=== PATIENT | male | born 1995 | race Caucasian/White ===

== ENCOUNTER 2017-11-11 13:21 | Inpatient (IN) | payer MEDICAID, OTHER ==
[~2017-11-11] VITALS: Ht 188 cm; Wt 126.4 kg
[2017-11-11] MEDS ORDERED: LABETALOL 5MG/ML, 20ML ONE (13:53)
[2017-11-11] MEDS ORDERED: SODIUM CHLORIDE FLUSH 10ML SYR IVF ONE (14:00)
[2017-11-11] MEDS: LABETALOL 5MG/ML, 20ML IVPush PRN ×2 (14:03→14:44)
[2017-11-11 14:23] LABS: BASOPHILS # (AUTO) 0.07 x10^3/uL (0-0.1); BASOPHILS % (AUTO) 1 % (0-1); EOSINOPHILS # (AUTO) 0.11 x10^3/uL (0-0.4); EOSINOPHILS % (AUTO) 1 % (1-7); LYMPHOCYTES # (AUTO) 0.95 x10^3/uL (1-3.4); LYMPHOCYTES % (AUTO) 8 % (22-44); MD NO; MEAN CORPUSCULAR HEMOGLOBIN 30.3 pg (27.5-34.5); MEAN CORPUSCULAR HGB CONC 34.9 g/dL (33.2-36.2); MEAN CORPUSCULAR VOLUME 86.8 fL (81-97); MEAN PLATELET VOLUME 10.3 fL (7.4-10.4); MONOCYTES # (AUTO) 0.41 x10^3/uL (0.2-0.8); MONOCYTES % (AUTO) 4 % (2-9); NEUTROPHILS # (AUTO) 9.95 x10^3/uL (1.8-6.8); NEUTROPHILS % (AUTO) 87 % (42-75); PLATELET COUNT 159 x10^3/uL (130-400); RED BLOOD COUNT 5.13 x10^6/uL (4.38-5.82); RED CELL DISTRIBUTION WIDTH 14.6 % (9.4-14.8)
[2017-11-11 14:25] LABS: ALANINE AMINOTRANSFERASE 47 U/L (12-78); ALBUMIN 3.6 g/dL (3.4-5.0); ANION GAP 13 mmol/L (5-15); CALCIUM 8.6 mg/dL (8.5-10.1); CHLORIDE 102 mmol/L (98-107); CREATININE 8.96 mg/dL (0.7-1.3)
[2017-11-11 14:29] LABS: ALKALINE PHOSPHATASE 68 U/L (45-117); TOTAL PROTEIN 7.4 g/dL (6.4-8.2); TROPONIN I 0.105 ng/mL (0.000-0.045)
[2017-11-11] MEDS: HEPARIN 5,000 UNITS/ML, 1ML SQ SCH (16:00)
[2017-11-11] MEDS ORDERED: ENALAPRILAT 1.25 MG/ML, 2ML IVPush PRN (16:00)
[2017-11-11] MEDS ORDERED: POLYETHYLENE GLYCOL 17 GM PACKET PO PRN (16:00)
[2017-11-11] MEDS ORDERED: SODIUM CHLORIDE 0.45% 1,000 ML IV SCH (16:30)
[2017-11-11] MEDS ORDERED: SODIUM CHLORIDE 0.9% 1,000 ML IV SCH (17:00)
[2017-11-11] MEDS: LABETALOL 100 MG TABLET PO SCH (18:06)
[2017-11-11 18:23] LABS: TROPONIN I 0.116 ng/mL (0.000-0.045)
[2017-11-11 18:50] LABS: MICROSCOPIC INDICATED
[2017-11-11 19:03] LABS: AMPHETAMINE SCREEN, URINE Negative (Negative); BARBITURATE SCREEN, URINE Negative (Negative); BENZODIAZEPINE SCREEN, URINE Negative (Negative); CANNABINOID SCREEN, URINE Negative (Negative); COCAINE SCREEN, URINE Negative (Negative); METHADONE SCREEN, URINE Negative (Negative); OPIATE SCREEN, URINE Negative (Negative)
[2017-11-11 19:13] LABS: CULTURE INDICATED? NO
[2017-11-11 19:44] LABS: CHLORIDE,URINE RANDOM 43 mmol/L; POTASSIUM,URINE RANDOM 35 mmol/L; SODIUM,URINE RANDOM 40 mmol/L
[2017-11-12 04:21] LABS: BASOPHILS # (AUTO) 0.03 x10^3/uL (0-0.1); BASOPHILS % (AUTO) 0 % (0-1); EOSINOPHILS % (AUTO) 2 % (1-7); LYMPHOCYTES # (AUTO) 1.99 x10^3/uL (1-3.4); LYMPHOCYTES % (AUTO) 14 % (22-44); MD NO; MEAN CORPUSCULAR HEMOGLOBIN 30.4 pg (27.5-34.5); MEAN CORPUSCULAR HGB CONC 34.8 g/dL (33.2-36.2); MEAN CORPUSCULAR VOLUME 87.3 fL (81-97); MEAN PLATELET VOLUME 9.9 fL (7.4-10.4); MONOCYTES # (AUTO) 0.63 x10^3/uL (0.2-0.8); MONOCYTES % (AUTO) 5 % (2-9); NEUTROPHILS # (AUTO) 10.87 x10^3/uL (1.8-6.8); NEUTROPHILS % (AUTO) 79 % (42-75); PLATELET COUNT 158 x10^3/uL (130-400); RED BLOOD COUNT 4.93 x10^6/uL (4.38-5.82); RED CELL DISTRIBUTION WIDTH 13.4 % (9.4-14.8)
[2017-11-12 04:35] LABS: ANION GAP 11 mmol/L (5-15); CALCIUM 8.1 mg/dL (8.5-10.1); CHLORIDE 100 mmol/L (98-107)
[2017-11-12 04:43] LABS: ALANINE AMINOTRANSFERASE 40 U/L (12-78); ALBUMIN 3.5 g/dL (3.4-5.0); ALKALINE PHOSPHATASE 62 U/L (45-117); BILIRUBIN,TOTAL 0.7 mg/dL (0.2-1.0); CHOL/HDL RATIO 2.8; CHOLESTEROL, TOTAL 122 mg/dL (140-239); CREATININE 9.01 mg/dL (0.7-1.3); HDL CHOL % 35 % (26-37); HDL CHOLESTEROL (DIRECT) 43 mg/dL (40-60); LDL CHOLESTEROL,CALCULATED 53 mg/dL (54-169); LDL/HDL RATIO 1.2 (0.5-3.0); TOTAL PROTEIN 7.1 g/dL (6.4-8.2); TRIGLYCERIDES 131 mg/dL (50-200); VLDL CHOLESTEROL 26 mg/dL (0-25)
[2017-11-12] MEDS: HEPARIN 5,000 UNITS/ML, 1ML SQ SCH ×3 (08:00→16:00)
[2017-11-12] MEDS: AMLODIPINE 5 MG TABLET PO SCH ×2 (11:39→20:57)
[2017-11-12] MEDS: LABETALOL 100 MG TABLET PO SCH ×2 (11:39→18:37)
[2017-11-12] MEDS ORDERED: FUROSEMIDE 100 MG/10 ML IV ONE (13:30)
[2017-11-13] MEDS: ONDANSETRON ODT 4 MG PO PRN ×2 (04:18→08:22)
[2017-11-13 04:33] LABS: ALBUMIN 3.2 g/dL (3.4-5.0); ANION GAP 12 mmol/L (5-15); CALCIUM 8.1 mg/dL (8.5-10.1); CHLORIDE 98 mmol/L (98-107)
[2017-11-13 04:36] LABS: CREATININE 9.18 mg/dL (0.7-1.3)
[2017-11-13 04:37] LABS: ALANINE AMINOTRANSFERASE 31 U/L (12-78); ALKALINE PHOSPHATASE 58 U/L (45-117); BILIRUBIN,TOTAL 0.6 mg/dL (0.2-1.0); TOTAL PROTEIN 6.7 g/dL (6.4-8.2)
[2017-11-13 04:49] LABS: BASOPHILS # (AUTO) 0.09 x10^3/uL (0-0.1); BASOPHILS % (AUTO) 1 % (0-1); EOSINOPHILS # (AUTO) 0.21 x10^3/uL (0-0.4); EOSINOPHILS % (AUTO) 1 % (1-7); LYMPHOCYTES # (AUTO) 1.89 x10^3/uL (1-3.4); LYMPHOCYTES % (AUTO) 13 % (22-44); MD NO; MEAN CORPUSCULAR HEMOGLOBIN 30.2 pg (27.5-34.5); MEAN CORPUSCULAR HGB CONC 34.8 g/dL (33.2-36.2); MEAN CORPUSCULAR VOLUME 86.9 fL (81-97); MEAN PLATELET VOLUME 9.9 fL (7.4-10.4); MONOCYTES # (AUTO) 0.62 x10^3/uL (0.2-0.8); MONOCYTES % (AUTO) 4 % (2-9); NEUTROPHILS # (AUTO) 12.03 x10^3/uL (1.8-6.8); NEUTROPHILS % (AUTO) 81 % (42-75); PLATELET COUNT 204 x10^3/uL (130-400); RED BLOOD COUNT 4.95 x10^6/uL (4.38-5.82); RED CELL DISTRIBUTION WIDTH 14.4 % (9.4-14.8)
[2017-11-13] MEDS: LABETALOL 100 MG TABLET PO SCH ×3 (09:06→21:57)
[2017-11-13] MEDS: AMLODIPINE 5 MG TABLET PO SCH ×2 (09:06→21:57)
[2017-11-13] MEDS: HEPARIN 5,000 UNITS/ML, 1ML SQ SCH ×3 (09:07→17:08)
[2017-11-14 04:51] LABS: INTERNATIONAL NORMALIZED RATIO 0.94 (0.93-1.1); PROTHROMBIN TIME 9.8 Seconds (9.6-11.5)
[2017-11-14 04:53] LABS: MEAN CORPUSCULAR HGB CONC 34.4 g/dL (33.2-36.2); MEAN CORPUSCULAR VOLUME 87.3 fL (81-97); MEAN PLATELET VOLUME 9.7 fL (7.4-10.4); PLATELET COUNT 202 x10^3/uL (130-400); RED BLOOD COUNT 4.64 x10^6/uL (4.38-5.82); RED CELL DISTRIBUTION WIDTH 14.1 % (9.4-14.8)
[2017-11-14 04:55] LABS: ALANINE AMINOTRANSFERASE 26 U/L (12-78); ALBUMIN 3.2 g/dL (3.4-5.0); ANION GAP 9 mmol/L (5-15); CALCIUM 8.6 mg/dL (8.5-10.1); CHLORIDE 100 mmol/L (98-107)
[2017-11-14 04:57] LABS: ALKALINE PHOSPHATASE 56 U/L (45-117); BILIRUBIN,TOTAL 0.4 mg/dL (0.2-1.0); CREATININE 9.59 mg/dL (0.7-1.3); TOTAL PROTEIN 6.9 g/dL (6.4-8.2)
[2017-11-14 05:27] LABS: BASOPHILS # (AUTO) 0.05 x10^3/uL (0-0.1); BASOPHILS % (AUTO) 0 % (0-1); EOSINOPHILS # (AUTO) 0.53 x10^3/uL (0-0.4); EOSINOPHILS % (AUTO) 5 % (1-7); LYMPHOCYTES # (AUTO) 2.25 x10^3/uL (1-3.4); LYMPHOCYTES % (AUTO) 19 % (22-44); MD SCAN; MONOCYTES # (AUTO) 0.65 x10^3/uL (0.2-0.8); MONOCYTES % (AUTO) 6 % (2-9); NEUTROPHILS % (AUTO) 71 % (42-75)
[2017-11-14] MEDS: HEPARIN 5,000 UNITS/ML, 1ML SQ SCH ×3 (08:14→16:19)
[2017-11-14] MEDS: AMLODIPINE 5 MG TABLET PO SCH ×2 (08:14→21:50)
[2017-11-14] MEDS: LABETALOL 100 MG TABLET PO SCH ×3 (08:14→21:51)
[2017-11-14] MEDS ORDERED: LIDOCAINE-MPF 2%, 2ML ONE ×2 (12:35→12:39)
[2017-11-14] MEDS ORDERED: MIDAZOLAM 1 MG/ML, 5ML ONE ×2 (12:37→12:38)
[2017-11-14] MEDS ORDERED: FENTANYL PF 100 MCG/2ML ONE ×2 (12:37)
[2017-11-14] MEDS ORDERED: FLUMAZENIL 0.1 MG/1 ML, 5ML ONE (12:38)
[2017-11-14] MEDS ORDERED: NALOXONE 1 MG/ML, 2ML ONE (12:38)
[2017-11-14] MEDS ORDERED: CEFAZOLIN PMX 1GM/50ML 50 ML ONE (13:01)
[2017-11-14] MEDS: ACETAMINOPHEN 325 MG TABLET PO PRN (16:19)
[2017-11-15] MEDS: HEPARIN 5,000 UNITS/ML, 1ML SQ SCH ×3 (00:11→16:29)
[2017-11-15] MEDS: LABETALOL 5MG/ML, 20ML IVPush PRN ×3 (00:24→14:03)
[2017-11-15] MEDS: ACETAMINOPHEN 325 MG TABLET PO PRN (00:24)
[2017-11-15 04:50] LABS: BASOPHILS % (AUTO) 0 % (0-1); EOSINOPHILS % (AUTO) 0 % (1-7); LYMPHOCYTES # (AUTO) 0.64 x10^3/uL (1-3.4); LYMPHOCYTES % (AUTO) 7 % (22-44); MD NO; MEAN CORPUSCULAR HEMOGLOBIN 29.8 pg (27.5-34.5); MEAN CORPUSCULAR HGB CONC 34.4 g/dL (33.2-36.2); MEAN CORPUSCULAR VOLUME 86.7 fL (81-97); MEAN PLATELET VOLUME 9.9 fL (7.4-10.4); MONOCYTES # (AUTO) 0.08 x10^3/uL (0.2-0.8); MONOCYTES % (AUTO) 1 % (2-9); NEUTROPHILS # (AUTO) 9.04 x10^3/uL (1.8-6.8); NEUTROPHILS % (AUTO) 93 % (42-75); PLATELET COUNT 240 x10^3/uL (130-400); RED BLOOD COUNT 4.49 x10^6/uL (4.38-5.82); RED CELL DISTRIBUTION WIDTH 14.2 % (9.4-14.8)
[2017-11-15 05:02] LABS: ALBUMIN 3.1 g/dL (3.4-5.0); ANION GAP 14 mmol/L (5-15); CALCIUM 8.6 mg/dL (8.5-10.1); CHLORIDE 99 mmol/L (98-107)
[2017-11-15 05:07] LABS: ALANINE AMINOTRANSFERASE 29 U/L (12-78); ALKALINE PHOSPHATASE 51 U/L (45-117); BILIRUBIN,TOTAL 0.3 mg/dL (0.2-1.0); CREATININE 8.49 mg/dL (0.7-1.3); TOTAL PROTEIN 6.7 g/dL (6.4-8.2)
[2017-11-15] MEDS: AMLODIPINE 5 MG TABLET PO SCH ×2 (09:21→21:06)
[2017-11-15] MEDS: LABETALOL 100 MG TABLET PO SCH ×3 (09:21→21:06)
[2017-11-16] MEDS: HEPARIN 5,000 UNITS/ML, 1ML SQ SCH ×3 (00:38→16:36)
[2017-11-16 04:29] VITALS: BP 140/70
[2017-11-16 04:55] LABS: BASOPHILS # (AUTO) 0.01 x10^3/uL (0-0.1); BASOPHILS % (AUTO) 0 % (0-1); EOSINOPHILS % (AUTO) 0 % (1-7); LYMPHOCYTES # (AUTO) 0.55 x10^3/uL (1-3.4); LYMPHOCYTES % (AUTO) 4 % (22-44); MD NO; MEAN CORPUSCULAR HEMOGLOBIN 30.5 pg (27.5-34.5); MEAN CORPUSCULAR HGB CONC 34.5 g/dL (33.2-36.2); MEAN CORPUSCULAR VOLUME 88.5 fL (81-97); MEAN PLATELET VOLUME 9.5 fL (7.4-10.4); MONOCYTES # (AUTO) 0.55 x10^3/uL (0.2-0.8); MONOCYTES % (AUTO) 4 % (2-9); NEUTROPHILS # (AUTO) 12.85 x10^3/uL (1.8-6.8); NEUTROPHILS % (AUTO) 92 % (42-75); PLATELET COUNT 270 x10^3/uL (130-400); RED BLOOD COUNT 4.34 x10^6/uL (4.38-5.82); RED CELL DISTRIBUTION WIDTH 14.7 % (9.4-14.8)
[2017-11-16 04:56] LABS: ALBUMIN 3.3 g/dL (3.4-5.0); ANION GAP 14 mmol/L (5-15); CALCIUM 8.8 mg/dL (8.5-10.1); CHLORIDE 97 mmol/L (98-107)
[2017-11-16 05:00] LABS: ALANINE AMINOTRANSFERASE 34 U/L (12-78); ALKALINE PHOSPHATASE 48 U/L (45-117); BILIRUBIN,TOTAL 0.3 mg/dL (0.2-1.0); TOTAL PROTEIN 6.9 g/dL (6.4-8.2)
[2017-11-16] MEDS: LABETALOL 100 MG TABLET PO SCH ×3 (08:20→21:25)
[2017-11-16] MEDS: AMLODIPINE 5 MG TABLET PO SCH ×2 (08:20→21:25)
[2017-11-16 12:13] VITALS: BP 178/83
[2017-11-16 19:30] VITALS: BP 163/75
[2017-11-16 21:23] VITALS: BP 187/79
[2017-11-17] VITALS (7 sets, daily range): BP systolic 167–207; BP diastolic 71–106
[2017-11-17] MEDS: HEPARIN 5,000 UNITS/ML, 1ML SQ SCH ×4 (00:48→23:04)
[2017-11-17] MEDS: ACETAMINOPHEN 325 MG TABLET PO PRN (00:53)
[2017-11-17 05:31] LABS: BASOPHILS # (AUTO) 0.01 x10^3/uL (0-0.1); BASOPHILS % (AUTO) 0 % (0-1); EOSINOPHILS % (AUTO) 0 % (1-7); LYMPHOCYTES # (AUTO) 0.58 x10^3/uL (1-3.4); LYMPHOCYTES % (AUTO) 4 % (22-44); MD NO; MEAN CORPUSCULAR HEMOGLOBIN 30.2 pg (27.5-34.5); MEAN CORPUSCULAR HGB CONC 34.1 g/dL (33.2-36.2); MEAN CORPUSCULAR VOLUME 88.6 fL (81-97); MEAN PLATELET VOLUME 9.1 fL (7.4-10.4); MONOCYTES # (AUTO) 1.18 x10^3/uL (0.2-0.8); MONOCYTES % (AUTO) 7 % (2-9); NEUTROPHILS # (AUTO) 14.35 x10^3/uL (1.8-6.8); NEUTROPHILS % (AUTO) 89 % (42-75); PLATELET COUNT 280 x10^3/uL (130-400); RED BLOOD COUNT 4.49 x10^6/uL (4.38-5.82)
[2017-11-17 05:48] LABS: ANION GAP 12 mmol/L (5-15); CALCIUM 8.7 mg/dL (8.5-10.1); CHLORIDE 98 mmol/L (98-107)
[2017-11-17 05:49] LABS: CREATININE 7.25 mg/dL (0.7-1.3)
[2017-11-17] MEDS: LABETALOL 100 MG TABLET PO SCH (09:21)
[2017-11-17] MEDS: AMLODIPINE 5 MG TABLET PO SCH (09:21)
[2017-11-17] MEDS: DILTIAZEM 120 MG CAP.ER.12H PO SCH (21:01)
[2017-11-17] MEDS: LABETALOL 5MG/ML, 20ML IVPush PRN (23:05)
[2017-11-18] VITALS (10 sets, daily range): BP systolic 147–193; BP diastolic 69–111
[2017-11-18] MEDS: LABETALOL 5MG/ML, 20ML IVPush PRN ×2 (06:05→14:43)
[2017-11-18] MEDS: DOXAZOSIN 2MG TABLET PO SCH (07:41)
[2017-11-18] MEDS: DILTIAZEM 120 MG CAP.ER.12H PO SCH (07:41)
[2017-11-18] MEDS: HEPARIN 5,000 UNITS/ML, 1ML SQ SCH ×2 (08:48→16:44)
[2017-11-18] MEDS: METOPROLOL TARTRATE 50 MG TABLET PO SCH (17:49)
[2017-11-19] MEDS: HEPARIN 5,000 UNITS/ML, 1ML SQ SCH ×3 (00:36→16:21)
[2017-11-19 00:39] VITALS: BP 157/97
[2017-11-19] MEDS: METOPROLOL TARTRATE 50 MG TABLET PO SCH (04:57)
[2017-11-19 05:44] LABS: BASOPHILS # (AUTO) 0.01 x10^3/uL (0-0.1); BASOPHILS % (AUTO) 0 % (0-1); EOSINOPHILS # (AUTO) 0.14 x10^3/uL (0-0.4); EOSINOPHILS % (AUTO) 1 % (1-7); LYMPHOCYTES # (AUTO) 1.05 x10^3/uL (1-3.4); LYMPHOCYTES % (AUTO) 10 % (22-44); MD NO; MEAN CORPUSCULAR HEMOGLOBIN 30.5 pg (27.5-34.5); MEAN CORPUSCULAR HGB CONC 34.4 g/dL (33.2-36.2); MEAN CORPUSCULAR VOLUME 88.7 fL (81-97); MEAN PLATELET VOLUME 8.8 fL (7.4-10.4); MONOCYTES # (AUTO) 0.83 x10^3/uL (0.2-0.8); MONOCYTES % (AUTO) 8 % (2-9); NEUTROPHILS # (AUTO) 8.45 x10^3/uL (1.8-6.8); NEUTROPHILS % (AUTO) 81 % (42-75); PLATELET COUNT 234 x10^3/uL (130-400); RED BLOOD COUNT 4.45 x10^6/uL (4.38-5.82); RED CELL DISTRIBUTION WIDTH 14.4 % (9.4-14.8)
[2017-11-19 05:48] LABS: ANION GAP 12 mmol/L (5-15); CALCIUM 8.1 mg/dL (8.5-10.1); CHLORIDE 98 mmol/L (98-107); CREATININE 6.53 mg/dL (0.7-1.3)
[2017-11-19 07:47] VITALS: BP 164/111
[2017-11-19] MEDS: AMLODIPINE 10 MG TAB PO SCH (08:11)
[2017-11-19] MEDS: DILTIAZEM 300 MG CAP.ER.24H PO SCH (08:11)
[2017-11-19] MEDS: DOXAZOSIN 2MG TABLET PO SCH (08:11)
[2017-11-19 12:39] VITALS: BP 151/77
[2017-11-19] MEDS: METOPROLOL TARTRATE 100 MG TABLET PO SCH (16:25)
[2017-11-19 20:00] VITALS: BP 145/82
[2017-11-20 02:00] VITALS: BP 160/84
[2017-11-20 05:47] LABS: BASOPHILS % (AUTO) 0 % (0-1); EOSINOPHILS # (AUTO) 0.36 x10^3/uL (0-0.4); EOSINOPHILS % (AUTO) 3 % (1-7); LYMPHOCYTES # (AUTO) 1.17 x10^3/uL (1-3.4); LYMPHOCYTES % (AUTO) 9 % (22-44); MD NO; MEAN CORPUSCULAR HGB CONC 34.1 g/dL (33.2-36.2); MEAN CORPUSCULAR VOLUME 88.1 fL (81-97); MONOCYTES # (AUTO) 1.03 x10^3/uL (0.2-0.8); MONOCYTES % (AUTO) 8 % (2-9); NEUTROPHILS # (AUTO) 10.32 x10^3/uL (1.8-6.8); NEUTROPHILS % (AUTO) 80 % (42-75); PLATELET COUNT 259 x10^3/uL (130-400); RED BLOOD COUNT 4.58 x10^6/uL (4.38-5.82)
[2017-11-20 05:48] VITALS: BP 159/85
[2017-11-20] MEDS: METOPROLOL TARTRATE 100 MG TABLET PO SCH (05:57)
[2017-11-20 06:30] LABS: ALANINE AMINOTRANSFERASE 60 U/L (12-78); ALBUMIN 3.2 g/dL (3.4-5.0); ANION GAP 14 mmol/L (5-15); CALCIUM 8.8 mg/dL (8.5-10.1); CHLORIDE 97 mmol/L (98-107); CREATININE 7.34 mg/dL (0.7-1.3)
[2017-11-20 06:33] LABS: ALKALINE PHOSPHATASE 47 U/L (45-117); BILIRUBIN,TOTAL 0.6 mg/dL (0.2-1.0); TOTAL PROTEIN 6.4 g/dL (6.4-8.2)
[2017-11-20 07:09] VITALS: BP 151/83
[2017-11-20] MEDS: DOXAZOSIN 2MG TABLET PO SCH (08:59)
[2017-11-20] MEDS: AMLODIPINE 10 MG TAB PO SCH (08:59)
[2017-11-20] MEDS: DILTIAZEM 300 MG CAP.ER.24H PO SCH (09:00)
[2017-11-20] MEDS: HEPARIN 5,000 UNITS/ML, 1ML SQ SCH ×3 (09:00→17:59)
[2017-11-20] MEDS: CARVEDILOL 25 MG TABLET PO SCH (18:00)
[2017-11-20 19:48] VITALS: BP 157/68
[2017-11-20] MEDS: LOSARTAN 25MG TABLET PO SCH (19:49)
[2017-11-20 20:00] VITALS: BP 152/75
[2017-11-21] VITALS (8 sets, daily range): BP systolic 132–153; BP diastolic 63–88
[2017-11-21] MEDS: HEPARIN 5,000 UNITS/ML, 1ML SQ SCH ×3 (00:09→17:29)
[2017-11-21] MEDS: CARVEDILOL 25 MG TABLET PO SCH ×2 (05:08→17:29)
[2017-11-21 05:29] LABS: BASOPHILS # (AUTO) 0.04 x10^3/uL (0-0.1); BASOPHILS % (AUTO) 0 % (0-1); EOSINOPHILS # (AUTO) 0.37 x10^3/uL (0-0.4); EOSINOPHILS % (AUTO) 3 % (1-7); LYMPHOCYTES # (AUTO) 1.43 x10^3/uL (1-3.4); LYMPHOCYTES % (AUTO) 11 % (22-44); MD NO; MEAN CORPUSCULAR HEMOGLOBIN 29.8 pg (27.5-34.5); MEAN CORPUSCULAR HGB CONC 34.1 g/dL (33.2-36.2); MEAN CORPUSCULAR VOLUME 87.4 fL (81-97); MEAN PLATELET VOLUME 9.3 fL (7.4-10.4); MONOCYTES # (AUTO) 1.14 x10^3/uL (0.2-0.8); MONOCYTES % (AUTO) 9 % (2-9); NEUTROPHILS # (AUTO) 9.82 x10^3/uL (1.8-6.8); NEUTROPHILS % (AUTO) 77 % (42-75); PLATELET COUNT 252 x10^3/uL (130-400); RED BLOOD COUNT 4.43 x10^6/uL (4.38-5.82)
[2017-11-21 05:33] LABS: ANION GAP 9 mmol/L (5-15); CALCIUM 8.1 mg/dL (8.5-10.1); CHLORIDE 101 mmol/L (98-107)
[2017-11-21 05:34] LABS: CREATININE 6.45 mg/dL (0.7-1.3)
[2017-11-21] MEDS: DOXAZOSIN 2MG TABLET PO SCH (08:48)
[2017-11-21] MEDS: LOSARTAN 25MG TABLET PO SCH ×2 (08:49→22:03)
[2017-11-21] MEDS: DILTIAZEM 300 MG CAP.ER.24H PO SCH (08:49)
[2017-11-21] MEDS: AMLODIPINE 10 MG TAB PO SCH (08:50)
[2017-11-21] MEDS: TORSEMIDE 20 MG TABLET PO SCH (10:50)
[2017-11-21] MEDS: SEVELAMER CARBONATE 800MG TAB PO SCH ×2 (12:44→17:29)
[2017-11-22] MEDS: HEPARIN 5,000 UNITS/ML, 1ML SQ SCH ×3 (01:00→17:09)
[2017-11-22 01:50] VITALS: BP 150/72
[2017-11-22 06:15] LABS: ALANINE AMINOTRANSFERASE 42 U/L (12-78); ALBUMIN 2.9 g/dL (3.4-5.0); ANION GAP 13 mmol/L (5-15); CALCIUM 8.3 mg/dL (8.5-10.1); CHLORIDE 97 mmol/L (98-107)
[2017-11-22 06:18] LABS: ALKALINE PHOSPHATASE 42 U/L (45-117); BILIRUBIN,TOTAL 0.3 mg/dL (0.2-1.0); CREATININE 8.29 mg/dL (0.7-1.3); TOTAL PROTEIN 6.6 g/dL (6.4-8.2)
[2017-11-22] MEDS: CARVEDILOL 25 MG TABLET PO SCH ×2 (06:20→17:09)
[2017-11-22 07:40] VITALS: BP 141/73
[2017-11-22] MEDS: DILTIAZEM 300 MG CAP.ER.24H PO SCH (09:33)
[2017-11-22] MEDS: TORSEMIDE 20 MG TABLET PO SCH (09:33)
[2017-11-22] MEDS: DOXAZOSIN 2MG TABLET PO SCH (09:34)
[2017-11-22] MEDS: SEVELAMER CARBONATE 800MG TAB PO SCH ×3 (09:34→17:09)
[2017-11-22 15:24] VITALS: BP 147/68
[2017-11-22 20:39] VITALS: BP 133/60
[2017-11-22 22:17] VITALS: BP 121/72
[2017-11-22] MEDS: AMLODIPINE 10 MG TAB PO SCH (22:18)
[2017-11-22] MEDS: LOSARTAN 25MG TABLET PO SCH (22:18)
[2017-11-23] MEDS: HEPARIN 5,000 UNITS/ML, 1ML SQ SCH ×3 (01:00→16:39)
[2017-11-23 01:45] VITALS: BP 154/77
[2017-11-23 06:02] LABS: CHLORIDE 98 mmol/L (98-107)
[2017-11-23 06:12] LABS: ALANINE AMINOTRANSFERASE 39 U/L (12-78); ALBUMIN 2.9 g/dL (3.4-5.0); ALKALINE PHOSPHATASE 42 U/L (45-117); ANION GAP 13 mmol/L (5-15); BILIRUBIN,TOTAL 0.3 mg/dL (0.2-1.0); CALCIUM 8.1 mg/dL (8.5-10.1); CREATININE 6.93 mg/dL (0.7-1.3); TOTAL PROTEIN 6.3 g/dL (6.4-8.2)
[2017-11-23] MEDS: CARVEDILOL 25 MG TABLET PO SCH ×2 (06:22→16:38)
[2017-11-23 09:05] VITALS: BP 136/65
[2017-11-23] MEDS ORDERED: ERGOCALCIFEROL 50,000 UNIT CAPSULE PO SCH (09:30)
[2017-11-23] MEDS: DILTIAZEM 300 MG CAP.ER.24H PO SCH (10:27)
[2017-11-23] MEDS: SEVELAMER CARBONATE 800MG TAB PO SCH ×3 (10:27→16:38)
[2017-11-23] MEDS: TORSEMIDE 20 MG TABLET PO SCH (10:28)
[2017-11-23] MEDS: DOXAZOSIN 2MG TABLET PO SCH (10:28)
[2017-11-23 12:38] VITALS: BP 147/71
[2017-11-23 20:36] VITALS: BP 143/71
[2017-11-23] MEDS: LOSARTAN 25MG TABLET PO SCH (21:12)
[2017-11-23] MEDS: AMLODIPINE 10 MG TAB PO SCH (21:13)
[2017-11-24 01:18] VITALS: BP 119/66
[2017-11-24] MEDS: HEPARIN 5,000 UNITS/ML, 1ML SQ SCH ×3 (01:21→17:00)
[2017-11-24 05:21] LABS: BASOPHILS # (AUTO) 0.05 x10^3/uL (0-0.1); BASOPHILS % (AUTO) 1 % (0-1); EOSINOPHILS # (AUTO) 0.49 x10^3/uL (0-0.4); EOSINOPHILS % (AUTO) 5 % (1-7); LYMPHOCYTES # (AUTO) 1.54 x10^3/uL (1-3.4); LYMPHOCYTES % (AUTO) 15 % (22-44); MD NO; MEAN CORPUSCULAR HEMOGLOBIN 30.5 pg (27.5-34.5); MEAN CORPUSCULAR HGB CONC 34.3 g/dL (33.2-36.2); MEAN CORPUSCULAR VOLUME 88.7 fL (81-97); MEAN PLATELET VOLUME 9.1 fL (7.4-10.4); MONOCYTES # (AUTO) 0.95 x10^3/uL (0.2-0.8); MONOCYTES % (AUTO) 9 % (2-9); NEUTROPHILS # (AUTO) 7.27 x10^3/uL (1.8-6.8); NEUTROPHILS % (AUTO) 71 % (42-75); PLATELET COUNT 267 x10^3/uL (130-400); RED BLOOD COUNT 4.27 x10^6/uL (4.38-5.82); RED CELL DISTRIBUTION WIDTH 13.8 % (9.4-14.8)
[2017-11-24 05:22] LABS: ALANINE AMINOTRANSFERASE 32 U/L (12-78); ALBUMIN 2.9 g/dL (3.4-5.0); ANION GAP 15 mmol/L (5-15); CALCIUM 8.4 mg/dL (8.5-10.1); CHLORIDE 98 mmol/L (98-107); CREATININE 7.67 mg/dL (0.7-1.3)
[2017-11-24 05:24] LABS: ALKALINE PHOSPHATASE 40 U/L (45-117); BILIRUBIN,TOTAL 0.3 mg/dL (0.2-1.0); TOTAL PROTEIN 6.1 g/dL (6.4-8.2)
[2017-11-24] MEDS: CARVEDILOL 25 MG TABLET PO SCH ×2 (05:39→17:50)
[2017-11-24 06:46] VITALS: BP 133/70
[2017-11-24] MEDS: TORSEMIDE 20 MG TABLET PO SCH (09:20)
[2017-11-24] MEDS: SEVELAMER CARBONATE 800MG TAB PO SCH ×3 (09:20→17:50)
[2017-11-24] MEDS: DOXAZOSIN 2MG TABLET PO SCH (09:21)
[2017-11-24] MEDS: DILTIAZEM 300 MG CAP.ER.24H PO SCH (09:21)
[2017-11-24 12:19] VITALS: BP 135/71
[2017-11-24 19:03] VITALS: BP 135/52
[2017-11-24] MEDS: LOSARTAN 25MG TABLET PO SCH (21:12)
[2017-11-24] MEDS: AMLODIPINE 10 MG TAB PO SCH (21:12)
[2017-11-25] MEDS: HEPARIN 5,000 UNITS/ML, 1ML SQ SCH ×3 (01:08→16:57)
[2017-11-25 01:09] VITALS: BP 144/64
[2017-11-25] MEDS: CARVEDILOL 25 MG TABLET PO SCH ×2 (06:08→16:57)
[2017-11-25] MEDS: SEVELAMER CARBONATE 800MG TAB PO SCH ×3 (08:17→16:57)
[2017-11-25] MEDS: TORSEMIDE 20 MG TABLET PO SCH (08:17)
[2017-11-25] MEDS: DOXAZOSIN 2MG TABLET PO SCH (08:18)
[2017-11-25] MEDS: DILTIAZEM 300 MG CAP.ER.24H PO SCH (08:18)
[2017-11-25 08:40] VITALS: BP 106/67
[2017-11-25 09:29] LABS: ALBUMIN 3.2 g/dL (3.4-5.0); ANION GAP 12 mmol/L (5-15); CALCIUM 8.4 mg/dL (8.5-10.1); CHLORIDE 98 mmol/L (98-107)
[2017-11-25 09:33] LABS: ALANINE AMINOTRANSFERASE 35 U/L (12-78); ALKALINE PHOSPHATASE 43 U/L (45-117); BILIRUBIN,TOTAL 0.3 mg/dL (0.2-1.0); CREATININE 6.73 mg/dL (0.7-1.3); TOTAL PROTEIN 6.7 g/dL (6.4-8.2)
[2017-11-25 14:15] VITALS: BP 132/68
[2017-11-25] MEDS: LOSARTAN 25MG TABLET PO SCH (21:15)
[2017-11-25] MEDS: AMLODIPINE 10 MG TAB PO SCH (21:16)
[2017-11-25 21:40] VITALS: BP 134/74
[2017-11-26] MEDS: HEPARIN 5,000 UNITS/ML, 1ML SQ SCH ×3 (01:37→16:38)
[2017-11-26 01:39] VITALS: BP 135/76
[2017-11-26 05:49] VITALS: BP 139/69
[2017-11-26] MEDS: CARVEDILOL 25 MG TABLET PO SCH ×2 (05:52→16:39)
[2017-11-26 06:45] VITALS: BP 125/70
[2017-11-26] MEDS: DOXAZOSIN 2MG TABLET PO SCH (08:36)
[2017-11-26] MEDS: SEVELAMER CARBONATE 800MG TAB PO SCH ×3 (08:36→16:39)
[2017-11-26] MEDS: DILTIAZEM 300 MG CAP.ER.24H PO SCH (08:37)
[2017-11-26] MEDS: TORSEMIDE 20 MG TABLET PO SCH (08:37)
[2017-11-26 13:03] VITALS: BP 141/75
[2017-11-26 19:12] VITALS: BP 131/67
[2017-11-26] MEDS: AMLODIPINE 10 MG TAB PO SCH (21:22)
[2017-11-26] MEDS: LOSARTAN 25MG TABLET PO SCH (21:23)
[2017-11-26] MEDS: DOCUSATE 100 MG CAPSULE PO PRN (23:11)
[2017-11-27 00:52] VITALS: BP 131/71
[2017-11-27] MEDS: DOCUSATE 100 MG CAPSULE PO PRN ×2 (06:25→21:47)
[2017-11-27] MEDS: CARVEDILOL 25 MG TABLET PO SCH ×2 (06:25→17:34)
[2017-11-27] MEDS: HEPARIN 5,000 UNITS/ML, 1ML SQ SCH ×3 (06:25→17:34)
[2017-11-27 07:32] VITALS: BP 125/70
[2017-11-27] MEDS: DOXAZOSIN 2MG TABLET PO SCH (07:50)
[2017-11-27] MEDS: DILTIAZEM 300 MG CAP.ER.24H PO SCH (07:50)
[2017-11-27] MEDS: TORSEMIDE 20 MG TABLET PO SCH (07:50)
[2017-11-27] MEDS: SEVELAMER CARBONATE 800MG TAB PO SCH ×3 (08:00→17:00)
[2017-11-27] MEDS ORDERED: BISACODYL 10 MG SUPP PR PRN (09:30)
[2017-11-27 09:31] LABS: ALBUMIN 3.5 g/dL (3.4-5.0); ANION GAP 9 mmol/L (5-15); CALCIUM 8.6 mg/dL (8.5-10.1); CHLORIDE 100 mmol/L (98-107)
[2017-11-27 09:34] LABS: CREATININE 4.73 mg/dL (0.7-1.3)
[2017-11-27] MEDS: SENNA/DOCUSATE TABLET PO SCH (12:26)
[2017-11-27 14:30] VITALS: BP 122/72
[2017-11-27 20:00] VITALS: BP 104/61
[2017-11-27 21:35] VITALS: BP 139/76
[2017-11-27] MEDS: LOSARTAN 25MG TABLET PO SCH (21:47)
[2017-11-27] MEDS: AMLODIPINE 10 MG TAB PO SCH (21:47)
[2017-11-28] MEDS: HEPARIN 5,000 UNITS/ML, 1ML SQ SCH ×3 (01:56→16:40)
[2017-11-28 02:00] VITALS: BP 126/70
[2017-11-28] MEDS: CARVEDILOL 25 MG TABLET PO SCH ×2 (06:12→16:39)
[2017-11-28] MEDS: SEVELAMER CARBONATE 800MG TAB PO SCH ×3 (08:00→16:40)
[2017-11-28 08:05] VITALS: BP 132/70
[2017-11-28] MEDS: SENNA/DOCUSATE TABLET PO SCH (08:35)
[2017-11-28] MEDS: DOXAZOSIN 2MG TABLET PO SCH (08:35)
[2017-11-28] MEDS: DILTIAZEM 300 MG CAP.ER.24H PO SCH (08:36)
[2017-11-28] MEDS: TORSEMIDE 20 MG TABLET PO SCH (08:36)
[2017-11-28 13:30] VITALS: BP 131/65
[2017-11-28 20:00] VITALS: BP 119/70
[2017-11-28] MEDS: AMLODIPINE 10 MG TAB PO SCH (21:37)
[2017-11-28] MEDS: LOSARTAN 25MG TABLET PO SCH (21:37)
[2017-11-29 01:19] VITALS: BP 135/69
[2017-11-29] MEDS: HEPARIN 5,000 UNITS/ML, 1ML SQ SCH ×3 (01:22→17:00)
[2017-11-29 05:30] LABS: BASOPHILS # (AUTO) 0.06 x10^3/uL (0-0.1); BASOPHILS % (AUTO) 1 % (0-1); EOSINOPHILS # (AUTO) 0.43 x10^3/uL (0-0.4); EOSINOPHILS % (AUTO) 4 % (1-7); LYMPHOCYTES # (AUTO) 1.64 x10^3/uL (1-3.4); LYMPHOCYTES % (AUTO) 15 % (22-44); MD NO; MEAN CORPUSCULAR HEMOGLOBIN 30.1 pg (27.5-34.5); MEAN CORPUSCULAR HGB CONC 34.7 g/dL (33.2-36.2); MEAN CORPUSCULAR VOLUME 86.9 fL (81-97); MEAN PLATELET VOLUME 8.8 fL (7.4-10.4); MONOCYTES # (AUTO) 0.67 x10^3/uL (0.2-0.8); MONOCYTES % (AUTO) 6 % (2-9); NEUTROPHILS # (AUTO) 8.34 x10^3/uL (1.8-6.8); NEUTROPHILS % (AUTO) 75 % (42-75); PLATELET COUNT 244 x10^3/uL (130-400); RED BLOOD COUNT 4.19 x10^6/uL (4.38-5.82); RED CELL DISTRIBUTION WIDTH 13.5 % (9.4-14.8)
[2017-11-29 05:34] LABS: CHLORIDE 100 mmol/L (98-107)
[2017-11-29 05:45] LABS: ALANINE AMINOTRANSFERASE 30 U/L (12-78); ALBUMIN 3.3 g/dL (3.4-5.0); ALKALINE PHOSPHATASE 47 U/L (45-117); ANION GAP 13 mmol/L (5-15); BILIRUBIN,TOTAL 0.5 mg/dL (0.2-1.0); CALCIUM 8.7 mg/dL (8.5-10.1); TOTAL PROTEIN 6.6 g/dL (6.4-8.2)
[2017-11-29] MEDS: CARVEDILOL 25 MG TABLET PO SCH (06:39)
[2017-11-29 07:34] VITALS: BP 109/61
[2017-11-29] MEDS: SEVELAMER CARBONATE 800MG TAB PO SCH ×3 (08:00→17:00)
[2017-11-29] MEDS: DILTIAZEM 300 MG CAP.ER.24H PO SCH (09:48)
[2017-11-29] MEDS: DOXAZOSIN 2MG TABLET PO SCH (09:49)
[2017-11-29] MEDS: SENNA/DOCUSATE TABLET PO SCH (09:50)
[2017-11-29] MEDS: TORSEMIDE 20 MG TABLET PO SCH (09:50)
[2017-11-29] MEDS ORDERED: TORS20TA PO (11:01)
[2017-11-29] MEDS ORDERED: HYDR-3343 PO (11:01)
[2017-11-29] MEDS ORDERED: AMLO10TA6 PO (11:01)
[2017-11-29] MEDS ORDERED: DILT300C2 PO (11:01)
[2017-11-29] MEDS ORDERED: LOSA25TA2 PO (11:01)
[2017-11-29] MEDS ORDERED: SEVE800T8 PO (11:01)
[2017-11-29] MEDS ORDERED: CARV25TA12 PO (11:01)
[2017-11-29] MEDS ORDERED: DOXA2TAB9 PO (11:01)
[2017-11-29] MEDS ORDERED: SENN1TAB8 PO (11:01)
[2017-11-29] MEDS ORDERED: ERGO500017 PO (11:01)
[2017-11-29 14:12] VITALS: BP 109/60
== END 2017-11-29 20:35 | disposition home or self-care (01) | DRG 673 ==
LOC: ED 15:07 → CCU 15:08 → ED 15:14 → CCU 16:26 → 4WST 11-16 09:49
PROVIDERS: ADMIT Hospitalist; ATTEND Family Medicine
PROC: 0TB13ZX Excision of Left Kidney, Percutaneous Approach, Diagnostic (ICD-10-PCS; principal; 2017-11-14)
PROC: 0JH63WZ Insertion of Totally Implantable Vascular Access Device into Chest Subcutaneous Tissue and Fascia, Percutaneous Approach (ICD-10-PCS; 2017-11-14)
PROC: 02HV33Z Insertion of Infusion Device into Superior Vena Cava, Percutaneous Approach (ICD-10-PCS; 2017-11-14)
PROC: B5181ZA Fluoroscopy of Superior Vena Cava using Low Osmolar Contrast, Guidance (ICD-10-PCS; 2017-11-14)
PROC: 5A1D70Z Performance of Urinary Filtration, Intermittent, Less than 6 Hours Per Day (ICD-10-PCS; 2017-11-14)
PROC: B548ZZA Ultrasonography of Superior Vena Cava, Guidance (ICD-10-PCS; 2017-11-14)
DX: N17.9 Acute kidney failure, unspecified (principal); M31.1 Thrombotic microangiopathy; I12.0 Hypertensive chronic kidney disease with stage 5 chronic kidney disease or end stage renal disease; E46 Unspecified protein-calorie malnutrition; I16.1 Hypertensive emergency; N18.6 End stage renal disease; G44.1 Vascular headache, not elsewhere classified; D63.1 Anemia in chronic kidney disease; D72.829 Elevated white blood cell count, unspecified; E66.01 Morbid (severe) obesity due to excess calories; E87.70 Fluid overload, unspecified; E86.0 Dehydration; I34.0 Nonrheumatic mitral (valve) insufficiency; I44.4 Left anterior fascicular block; J32.3 Chronic sphenoidal sinusitis; Z68.36 Body mass index [BMI] 36.0-36.9, adult; Z82.49 Family history of ischemic heart disease and other diseases of the circulatory system
CPT/HCPCS: 36415; 36565; 50200; 70450; 71045; 76770; 76937; 77001; 77012; 80048; 80053; 80061; 80069; 80074; 80307; 81001; 82088; 82306; 82436; 82570; 83516; 83520; 83735; 83970; 84100; 84133; 84244; 84300; 84443; 84484; 85025; 85397; 85610; 86038; 86147; 86148; 86160; 86162; 86256; 86480; 86706; 87081; 87806; 88300; 93005; 93306; 93975; 96374; 96375; 99156; 99157; G0378; J0690; J1644; J1940; J2250; J2930; J3010; J3490; Q0162; C1750; G0475; J1642; J2310; J7050